=== PATIENT | male | born 1960 | race Caucasian/White ===

== ENCOUNTER → 2023-11-05 06:54 | Outpatient (REF) | payer OTHER, SELFPAY | LOC: HWRAD 06:54 | PROVIDERS: ATTENDING PHYSICIAN Physical Medicine & Rehabilitation; FAMILY PHYSICIAN Nurse Practitioner Family | DX: S82.142A Displaced bicondylar fracture of left tibia, initial encounter for closed fracture (principal) | CPT/HCPCS: 73700 ==

== ENCOUNTER → 2024-02-05 13:18 | Outpatient (REF) | payer OTHER, SELFPAY | LOC: MRI 13:18 | PROVIDERS: ATTENDING PHYSICIAN Orthopaedic Surgery | DX: M25.562 Pain in left knee (principal); Z95.810 Presence of automatic (implantable) cardiac defibrillator | CPT/HCPCS: 71046; 73721 ==

== ENCOUNTER → 2024-03-10 10:02 | Outpatient (REF) | payer OTHER, SELFPAY | LOC: HWRCS 10:02 | PROVIDERS: ATTENDING PHYSICIAN Internal Medicine Interventional Cardiology; FAMILY PHYSICIAN Nurse Practitioner Family | DX: I25.5 Ischemic cardiomyopathy (principal) | CPT/HCPCS: 93306 ==

== ENCOUNTER 2024-05-02 07:40 | Inpatient (IN) | payer OTHER, SELFPAY ==
--- NOTE | 2024-03-26 11:37 | CM ---
Patient is scheduled for an elective L TKR on 05/02/24. Spoke with patient prior to surgery via telephone. Introduced role of Orthopedic Navigator. Patient reports that he lives with his in a two story home. There are two steps to enter and a
flight of steps to the second floor. There is a powder room on the entry table operator. He currently functions independently. He has a cane, rolling walker, commode and shower seat. He has never had VN services. PCP is Duncan Golden.
Discussed orthopedic program and post surgical plans. Reviewed anticipated length of stay and that goal is for him to return home at discharge. Also reviewed outpatient PT. Patient is in agreement with tentative plan and will go directly to
outpatient PT at [facility]. He will have support from his when he goes home.
Patient will complete online education.
Plan: Orthopedic Navigator will remain available to assist with the care of patient and will reassess discharge needs after surgery.
[2024-04-07 09:10] VITALS: BMI 34.9
[2024-04-07 10:10] LABS: Hematocrit 46.3 % (39.0-52.0); Hemoglobin 16.1 g/dL (13.0-18.0); Mean Corp Hgb Conc. 34.8 g/dL (33.0-37.0); Mean Corpuscular Hgb 33.4 pg (27.0-31.0); Mean Corpuscular Volume 96.1 fL (80.0-94.0); Mean Platelet Volume 8.7 fL (7.4-10.4); Platelet Count 158 10^3/uL (130-400); Red Blood Cell Count 4.82 10^6/uL (4.70-6.10); Red Cell Dist. Width 12.9 % (11.5-14.5); White Blood Cell Count 7.6 10^3/uL (4.8-10.8)
[2024-04-07 10:37] LABS: ALT (SGPT) 42 U/L (0-50); AST (SGOT) 44 U/L (17-59); Albumin 4.3 g/dl (3.5-5.0); Alkaline Phosphatase 107 U/L (38-126); Blood Urea Nitrogen 16 mg/dl (9-20); Calcium 9.4 mg/dl (8.4-10.2); Carbon Dioxide 23 mmol/L (22-30); Chloride 107 mmol/L (98-107); Estimated Creatinine Clearance > 125 ml/min; Glucose 54 mg/dl (70-99); Potassium 4.5 mmol/L (3.5-5.1); Sodium 138 mmol/L (135-145); Total Bilirubin 0.3 mg/dl (0.2-1.3); Total Protein 6.8 g/dl (6.3-8.2); eGFR > 60.00
[2024-04-07 10:49] LABS: Glycohemoglobin (HgbA1c) 7.6 % (4.0-5.6)
[2024-04-29 11:03] VITALS: BMI 34.9
[2024-05-02] VITALS (15 sets, daily range): BP systolic 85–125; BP diastolic 53–73; BMI 36.1
--- NOTE | 2024-05-02 08:01 | W.DS.TRANS ---
DC Summary - Steward/Stewardess Third
-
Discharge Instructions:
Discharge Diagnosis/Procedures L TKA Dr. Franklin 05/02/24
Diet Diabetic, Carb Controlled
Activity With Walker
Driving Restrictions No driving
Bathing Restrictions OK to Shower
Blood Work INR Sunday and -results to Dr Castillo
[facility]
Other Services PT
Instructions:
Stand-Alone Forms: Total Hip/Knee Replacement D/C
Changes to Home Medications: Yes
Discharge Medications:
DC Medications w/original date entered in [employer]
cetirizine 10 mg tablet 10 mg PO PRN PRN allergies 03/03/15
spironolactone 25 mg tablet (Aldactone) 25 mg PO DAILY 03/03/15
ascorbic acid (vitamin C) 250 mg tablet 500 mg PO DAILY 06/18/15
aspirin 81 mg tablet,delayed release 81 mg PO DAILY 06/18/15
cholecalciferol (vitamin D3) 25 mcg (1,000 unit) tablet 1,000 units PO DAILY 06/18/15
desvenlafaxine succinate 100 mg tablet,extended release 24 hr (Pristiq) 100 mg PO DAILY 03/17/20
insulin glargine 100 unit/mL subcutaneous solution (Lantus U-100 Insulin) 50 unit SQ HS 03/17/20
insulin lispro 100 unit/mL subcutaneous solution (Humalog U-100 Insulin) 0 unit SC AC 03/17/20
mesalamine 1.2 gram tablet,delayed release (Lialda) 1.2 g PO DAILY 03/17/20
modafinil 200 mg tablet 400 mg PO DAILY 03/17/20
empagliflozin 10 mg tablet (Jardiance) 10 mg PO DAILY 04/25/24
ezetimibe 10 mg tablet (Zetia) 10 mg PO DAILY 04/25/24
isosorbide mononitrate 30 mg tablet,extended release 24 hr 30 mg PO DAILY 04/25/24
metoprolol succinate 50 mg tablet,extended release 24 hr (Toprol XL) 50 mg PO DAILY 04/25/24
mupirocin 2 % topical ointment 1 applic topical BID 04/25/24
rosuvastatin 20 mg tablet 20 mg PO DAILY 04/25/24
sacubitril 97 mg-valsartan 103 mg tablet (Entresto) 1 tab PO BID 04/25/24
tirzepatide 10 mg/0.5 mL subcutaneous pen injector (Mounjaro) 10 mg SC SA 04/25/24
warfarin 4 mg tablet 6.5 mg PO QPM 04/25/24
acetaminophen 650 mg tablet,extended release 1,300 mg (2 x 650 mg) PO TID #0 tabs 05/02/24
docusate sodium 100 mg capsule (Colace) 100 mg PO BID stool softner #1 cap 05/02/24
magnesium hydroxide 400 mg/5 mL oral suspension (Milk of Magnesia) 30 ml PO HS PRN Constipation #1 mL 05/02/24
ondansetron 4 mg disintegrating tablet 4 mg PO Q6H PRN n/v #20 tabs 05/02/24
oxycodone 5 mg tablet 5 mg PO Q6H PRN 1 tab moderate pain, 2 tabs severe pain #30 tabs 05/02/24
Home Medication Changes
ondansetron 4 mg disintegrating tablet 4 mg PO Q6H PRN n/v #20 tabs 05/02/24
oxycodone 5 mg tablet 5 mg PO Q6H PRN 1 tab moderate pain, 2 tabs severe pain #30 tabs 05/02/24
Pending Results: No
[2024-05-02 08:16] LABS: Glucose - Point of Care 155 mg/dl (70-99)
[2024-05-02] MEDS: TYLENOL 650 MG PO ×3 (08:19→20:52)
[2024-05-02] MEDS: NORMOSOL-R 1000 IV ×2 (08:20→12:44)
[2024-05-02] MEDS: CELEBREX 200 MG PO (08:20)
[2024-05-02 11:33] LABS: Glucose - Point of Care 83 mg/dl (70-99)
[2024-05-02] MEDS: ROXICODONE 5 MG PO (13:51)
[2024-05-02 14:06] LABS: Glucose - Point of Care 126 mg/dl (70-99)
--- NOTE | 2024-05-02 15:29 | W.PN.UPDATE ---
Update Note
Progress Note Update
Patient doing well postop. VSS. Pulm: nonlabored. CV: regular. LLE: NVI distally. Calf soft. Able to fully extend. Dressing CDI. Post op xray as expected. Plan for discharge home tomorrow with outpatient PT on Sunday. Coumadin for DVT
prophylaxis.
[2024-05-02 15:39] LABS: INR 1.13; PT 14.3 Sec (11.4-14.6)
--- NOTE | 2024-05-02 16:00 | PTCARENOTE ---
1450: pt arrived to floor from PACU AOx3, carrying food tray. LFA 20g 75ml Norm R. bed low call mcarthur in reach Pt/OT walked pt
[2024-05-02 16:49] LABS: Glucose - Point of Care 288 mg/dl (70-99)
[2024-05-02] MEDS: JARDIANCE PO (16:59)
[2024-05-02] MEDS: PRISTIQ PO (16:59)
[2024-05-02] MEDS: ANCEF 5 IV (17:01)
[2024-05-02] MEDS: TYLENOL PO ×2 (17:03)
[2024-05-02] MEDS: DILAUDID 0.5 MG IV (17:04)
[2024-05-02] MEDS: ZETIA PO (17:09)
[2024-05-02] MEDS: NOVOLOG FLEXPEN-MODERATE RESISTANCE SC (17:09)
[2024-05-02] MEDS: CRESTOR PO (17:41)
[2024-05-02] MEDS: ENTRESTO 97 MG/103 MG PO (17:41)
[2024-05-02] MEDS: COUMADIN 5 MG PO (17:59)
[2024-05-02] MEDS: NOVOLOG FLEXPEN-MODERATE RESISTANCE 5 UNITS SC (17:59)
[2024-05-02] MEDS: BACTROBAN 2% OINTMENT 1 APPLIC NASAL (20:52)
[2024-05-02] MEDS: COLACE 100 MG PO (20:53)
[2024-05-02] MEDS: PROTONIX 40 MG PO (22:06)
[2024-05-02] MEDS: NEURONTIN 300 MG PO (22:06)
[2024-05-02] MEDS: ENTRESTO 97 MG/103 MG 1 TAB PO (22:06)
[2024-05-02] MEDS: SENOKOT 8.6 MG PO (22:06)
[2024-05-02] MEDS: LANTUS 0.56 UNITS SC (22:07)
[2024-05-02 22:12] LABS: Glucose - Point of Care 263 mg/dl (70-99)
[2024-05-03] MEDS: ANCEF 5 IV (00:29)
[2024-05-03] MEDS: TYLENOL 650 MG PO ×3 (00:29→08:30)
[2024-05-03] MEDS: ROXICODONE 5 MG PO ×3 (00:36→10:03)
[2024-05-03 03:24] VITALS: BP 125/68
[2024-05-03 06:00] VITALS: BMI 35.9
[2024-05-03 07:02] LABS: Glucose - Point of Care 185 mg/dl (70-99)
[2024-05-03 07:05] VITALS: BP 110/61
[2024-05-03 07:34] LABS: INR 2.13; PT 23.7 Sec (11.4-14.6)
--- NOTE | 2024-05-03 07:52 | W.PN.ORTHO ---
Today's Communication / Plan
-
Plan for discharge home today with outpatient PT on Sunday. Coumadin for DVT prophylaxis. Follow up in the office in 2 weeks.
Assessment
.
Distal Motor Intact: Yes
Dressing:
Clean, dry and intact.
Assessment:
Doing well s/p L TKR
Plan
.
Surgery / Date: 05/02/2024 L TKR
DVT Prophylaxis: Coumadin
Activity:
Out of bed.
PT/OT
Discharge Plan: Home w/ Outpatient PT
Subjective
.
.:
Patient resting comfortably. OOB and in the ervin yesterday. Feeling stiff today.
Vital Signs and Labs
.
Vital Signs and Labs:
Lab Results
04/07/24 09:07
04/07/24 09:07
Temp Pulse Resp BP Pulse Ox
97.2 F 64 16 110/61 96
05/03/24 07:05 05/03/24 07:05 05/03/24 07:05 05/03/24 07:05 05/03/24 07:05
PT 14.3 Sec (11.4-14.6) 05/02/24 15:05
INR 1.13 05/02/24 15:05
Non-invasive Hgb result: 15
Physical Exam
-
Pulm: nonlabored
CV: regular
Abd: benign
Ext: LLE: NVI distally. Calf soft. Dressing CDI. Able to fully extend and flexes to 90 degrees
[2024-05-03] MEDS: NOVOLOG FLEXPEN-MODERATE RESISTANCE 1 UNITS SC (08:25)
[2024-05-03] MEDS: ZETIA 10 MG PO (08:28)
[2024-05-03] MEDS: COLACE 100 MG PO (08:28)
[2024-05-03] MEDS: ENTRESTO 97 MG/103 MG 1 TAB PO (08:29)
[2024-05-03] MEDS: PRISTIQ 100 MG PO (08:30)
[2024-05-03] MEDS: TOPROL XL 25 MG PO (08:31)
[2024-05-03] MEDS: CRESTOR 20 MG PO (08:31)
[2024-05-03] MEDS: ALDACTONE 12.5 MG PO (08:32)
[2024-05-03] MEDS: JARDIANCE 10 MG PO (08:33)
[2024-05-03] MEDS: BACTROBAN 2% OINTMENT 1 APPLIC NASAL (08:33)
[2024-05-03 09:29] VITALS: BP 137/72
[2024-05-03 10:00] VITALS: BP 131/70; PULSE 61
--- NOTE | 2024-05-03 10:28 | CM ---
Reviewed the chart and spoke with the patient at the bedside. Reviewed CM consult for VN/homecare. Patient will be going to outpatient rehab. Declined VN. CM continues to be available to patient/family and is monitoring medical plan for needs at
discharge.
Plan: Discharge to home today with out patient therapy with [facility]. Patient's spouse to provide transportation.
[2024-05-03 11:17] VITALS: BP 130/72
== END 2024-05-03 11:51 | disposition home or self-care (01) | DRG 470 ==
LOC: 2 SOUTH 07:40
PROVIDERS: Physician Assistant Medical; ADMITTING PHYSICIAN Orthopaedic Surgery; FAMILY PHYSICIAN Nurse Practitioner Family
PROC: 0SRD0J9 Replacement of Left Knee Joint with Synthetic Substitute, Cemented, Open Approach (ICD-10-PCS; 2024-05-02)
DX: M17.12 Unilateral primary osteoarthritis, left knee (principal); K51.90 Ulcerative colitis, unspecified, without complications; I50.20 Unspecified systolic (congestive) heart failure; I48.91 Unspecified atrial fibrillation; E11.9 Type 2 diabetes mellitus without complications; E04.2 Nontoxic multinodular goiter; K21.9 Gastro-esophageal reflux disease without esophagitis; I11.0 Hypertensive heart disease with heart failure; I25.5 Ischemic cardiomyopathy; I25.10 Atherosclerotic heart disease of native coronary artery without angina pectoris; E78.2 Mixed hyperlipidemia; G47.33 Obstructive sleep apnea (adult) (pediatric); F32.9 Major depressive disorder, single episode, unspecified; E66.9 Obesity, unspecified; R26.2 Difficulty in walking, not elsewhere classified; I25.2 Old myocardial infarction; Z79.01 Long term (current) use of anticoagulants; Z79.4 Long term (current) use of insulin; Z79.82 Long term (current) use of aspirin; Z79.85 Long-term (current) use of injectable non-insulin antidiabetic drugs; Z95.5 Presence of coronary angioplasty implant and graft; Z95.810 Presence of automatic (implantable) cardiac defibrillator; Z79.899 Other long term (current) drug therapy; Z68.35 Body mass index [BMI] 35.0-35.9, adult
CPT/HCPCS: 36415; 73560; 80053; 82962; 83036; 85027; 85610; 87070; 97110; 97116; 97162; 97166; 97535; C1713; C1776

== ENCOUNTER 2024-10-20 06:15 | Day surgery (SDC) | payer OTHER, SELFPAY ==
[2024-10-20 08:28] LABS: Glucose - Point of Care 145 mg/dl (70-99)
[2024-10-20 08:30] VITALS: BP 114/71
[2024-10-20 08:35] VITALS: BMI 19.4
[2024-10-20 08:36] VITALS: BMI 19.4
[2024-10-20 10:34] VITALS: BP 115/65
[2024-10-20 10:40] LABS: Glucose - Point of Care 118 mg/dl (70-99)
[2024-10-20 10:45] VITALS: BP 103/66
[2024-10-20 10:57] VITALS: BP 110/63
== END 2024-10-20 11:15 | disposition home or self-care (01) ==
LOC: SDS 06:15
PROVIDERS: ATTENDING PHYSICIAN Specialist
DX: K51.90 Ulcerative colitis, unspecified, without complications (principal); K63.5 Polyp of colon; K57.30 Diverticulosis of large intestine without perforation or abscess without bleeding
CPT/HCPCS: 45385; 45380; 88305; 82962

== ENCOUNTER 2025-02-23 11:57 | Emergency (ER) | payer OTHER, SELFPAY ==
[2025-02-23 12:01] VITALS: BP 113/63
[2025-02-23 12:22] VITALS: BMI 33.9
--- NOTE | 2025-02-23 12:46 | ED.GENMED ---
History of Present Illness
<aMrlon Bruno DO - Last Filed: 02/23/25 12:48>
General
Chief Complaint: Eye Problems
Time Seen by Provider: 02/23/25 12:15
<German Solorzano Jr., PA-C - Last Filed: 02/23/25 13:40>
General
Source: patient
Exam Limitations: none
Nursing documentation reviewed up to this point in time: agreed with
History of Present Illness
History of Present Illness:
64-year-old male past medical history of heart disease ulcerative colitis presenting to the emergency department today with concerns of vision change which initially was consistent with a floater earlier today to the right eye at now its described
as a veil over his vision that seems to be moving to some slightly improving over the past few hours. Occasional flashes. Was otherwise asymptomatic last night normally has good vision.
Past History
<Marlon Bruno DO - Last Filed: 02/23/25 12:48>
Past History
ED Past Medical History: CAD, HTN (are), Hypercholesterolemia, IDDM, Psychiatric and Other (Cardiomyopath sleep apnea, colitis, kidney stones, arthritis, impaired vision, ADHD, depression y,)
ED Past Surgical History: Appendectomy and Cardiac (Cardiac stent x3 in 2012,ICD placement)
Social History
Tobacco: Non-smoker
Alcohol: None
Drug: None
Personal:
Living: with family
Employment: Employed
Review of Systems
<German Solorzano Jr., PA-C - Last Filed: 02/23/25 13:40>
Review of Systems
Allergies reviewed?: Yes
All Other Systems: ROS reviewed and negative except as documented in HPI and ROS
Phy Exam
<German Solorzano Jr., PA-C - Last Filed: 02/23/25 13:40>
Physical Exam
Physical Exam:
GENERAL: Alert , in no apparent distress
EYE:20/50 vision to the right eye 20/20 vision to the left eye, normal external eye on examination, technically difficult funduscopic examination unable to visualize the retina well with direct visualization.pupils equal and reactive
NECK: Supple, no significant adenopathy.
ENT: o/p clr, mmm.
CARDIAC: Regular rate and rhythm .
LUNGS: Clear breath sounds bilaterally, no acute respiratory distress, no wheezes/rales/rhonchi
ABDOMEN: Soft, without focal tenderness, no r/g, no cvat
NEUROLOGICAL: Alert and oriented, no focal neuro deficits
SKIN: Warm and dry, skin intact.
MUSCULOSKELETAL: No edema, well perfused.
PSYCH: Normal and appropriate interaction.
Course
<Marlon Bruno DO - Last Filed: 02/23/25 12:48>
Orders/Labs/Results
Orders:
Orders
02/23/25 12:36
Visual Acuity- Treatment ONCE
Vital Signs
Initial and Last Documented VS:
Initial Vital Signs
Temp Pulse Resp BP Pulse Ox
97.3 F 80 16 113/63 97
02/23/25 12:01 02/23/25 12:01 02/23/25 12:01 02/23/25 12:01 02/23/25 12:01
Last Documented Vital Signs
Temp Pulse Resp BP Pulse Ox
97.3 F 80 16 113/63 97
02/23/25 12:01 02/23/25 12:01 02/23/25 12:01 02/23/25 12:01 02/23/25 12:01
<German Solorzano Jr., PA-C - Last Filed: 02/23/25 13:40>
Orders/Labs/Results
Orders:
Orders
02/23/25 12:36
Visual Acuity- Treatment ONCE
Vital Signs
Initial and Last Documented VS:
Initial Vital Signs
Temp Pulse Resp BP Pulse Ox
97.3 F 80 16 113/63 97
02/23/25 12:01 02/23/25 12:01 02/23/25 12:01 02/23/25 12:01 02/23/25 12:01
Last Documented Vital Signs
Temp Pulse Resp BP Pulse Ox
97.3 F 80 16 113/63 97
02/23/25 12:01 02/23/25 12:01 02/23/25 12:01 02/23/25 12:01 02/23/25 12:01
<German Solorzano Jr., PA-C - Last Filed: 02/23/25 13:40>
MDM/Problems Addressed
MDM/Problems Addressed:
64-year-old male presenting to the emergency department today with concerns of vision changes to the right eye starting this morning upon awakening. No pain. Initially described as a floater now a veil. When he 50 vision to the right 20 the left.
Case discussed with ophthalmology that recommended immediate and emergent examination by ophthalmology at [facility]. This was recommended to the patient who claims that they would go directly there. Return precautions given otherwise.
<German Solorzano Jr., PA-C - Last Filed: 02/23/25 13:40>
*Critical Care Note
Total Time (30-74mins, 75-104mins- exclusive of procedures): Not Applicable
ED Attending Note
<Marlon Bruno DO - Last Filed: 02/23/25 12:48>
ED Attending Note
Patient seen and examined by attending physician: Yes
I performed the substantive portion of visit, reviewed & personally made and approve the management plan that is documented in note by myself or CHANDNI.: Yes
ED Attending Note:
I have seen and evaluated the patient with a [id number] encounter. I have spoken to the advance practicer provider and involved in the medical history, the physical exam, medical decision making.
Evaluation and management service: agree unless noted differently below.
Results interpretation: agree unless noted differently below.
Focused HPI: 64-year-old male presenting for evaluation of blurry vision in his right eye. He states it feels like there is a veil over his eye. He denies trauma
Physical exam: Sitting in bed comfortably. Pupils equal reactive. Very limited direct funduscopy showing mostly a hazy red appearance in the back of his eye.
Medical Decision Making: indicates that he has had vitreous hemorrhages in the past. The PA will discuss the case with ophthalmology
-
Portions of this chart may have been created with voice recognition software.� Occasional wrong word or��sound alike� substitutions may have occurred due to the inherent limitations of voice recognition software.
Discharge Plan
Departure
Patient Disposition: Home (Routine Discharge)
Date of Disposition: 02/23/25
Time of Disposition: 13:35
Patient with high blood pressure during this ER visit?: No
Condition: Good
Covid-19: Not Applicable
Discharge Problem:
Changes in vision
Prescriptions:
No Action
cetirizine 10 MG tablet
10 mg PO PRN PRN (Reason: allergies)
spironolactone [Aldactone] 25 MG tablet
25 mg PO DAILY
ascorbic acid (vitamin C) 250 MG tablet
500 mg PO DAILY
cholecalciferol (vitamin D3) 1,000 UNITS tablet
1,000 units PO DAILY
aspirin 81 MG tablet,delayed release (DR/EC)
81 mg PO DAILY
insulin glargine [Lantus U-100 Insulin] 100 UNIT/ML solution
50 unit SQ HS
Patient Comments:
pt took 30 Units SQ
modafinil 200 MG tablet
400 mg PO DAILY
insulin lispro [Humalog U-100 Insulin] 100 UNIT/ML solution
0 unit SC AC
Rx Instructions:
SLIDING SCALE WITH MEALS
mesalamine [Lialda] 1.2 GM tablet,delayed release (DR/EC)
1.2 g PO DAILY
desvenlafaxine succinate [Pristiq] 100 MG tablet extended release 24 hr
100 mg PO DAILY
metoprolol succinate [Toprol XL] 50 mg Tablet Extended Release 24 Hr
50 mg PO DAILY
isosorbide mononitrate 30 mg Tablet Extended Release 24 Hr
30 mg PO DAILY
warfarin 4 mg Tablet
6.5 mg PO QPM
ezetimibe [Zetia] 10 mg Tablet
10 mg PO DAILY
rosuvastatin 20 mg Tablet
20 mg PO DAILY
Jardiance 10 mg Tablet
10 mg PO DAILY
sacubitril-valsartan [Entresto] 97-103 mg Tablet
1 tab PO BID
Mounjaro 10 mg/0.5 mL Pen Injector
10 mg SC SA
acetaminophen 650 mg Tablet Extended Release
1,300 mg PO TID Qty: 0 0RF
Referrals:
Jay Jay Ott CRNP [Family Provider] -
Activity Restrictions/Additional Instructions:
You came to the emergency department today with concerns of visual changes to the right eye. We have concerned that this could possibly be an early retinal detachment. This also could be a vitreous change. You will need a proper examination by an
eye doctor. It is recommended that you immediately go to [facility] for further assessment of this us return to the ER for any worsening or progressive symptoms.
Interventions
Interventions:
*Risk Screen - Suicide Last Done: 02/23/25 12:22
*General Assessment Last Done: 02/23/25 12:22
*Neglect/Abuse Screening Last Done: 02/23/25 12:22
*ED- Fall Risk Assessment Last Done: 02/23/25 12:22
*ED COVID-19 Vaccine History Last Done: 02/23/25 12:22
Discharge Date and Time
Print Language: JAPANESE
== END 2025-02-23 13:40 | disposition home or self-care (01) ==
LOC: EMR 11:57
PROVIDERS: EMERGENCY PHYSICIAN Student in an Organized Health Care Education/Training Program; FAMILY PHYSICIAN Nurse Practitioner Family; OTHER PHYSICIAN Ophthalmology
DX: H53.8 Other visual disturbances (principal); I25.10 Atherosclerotic heart disease of native coronary artery without angina pectoris; I10 Essential (primary) hypertension; E11.319 Type 2 diabetes mellitus with unspecified diabetic retinopathy without macular edema; E78.00 Pure hypercholesterolemia, unspecified; I42.9 Cardiomyopathy, unspecified; F90.9 Attention-deficit hyperactivity disorder, unspecified type; M19.90 Unspecified osteoarthritis, unspecified site; F32.A Depression, unspecified; F41.9 Anxiety disorder, unspecified; G47.30 Sleep apnea, unspecified; K51.90 Ulcerative colitis, unspecified, without complications; I25.2 Old myocardial infarction; Z95.5 Presence of coronary angioplasty implant and graft; Z95.810 Presence of automatic (implantable) cardiac defibrillator; Z79.82 Long term (current) use of aspirin; Z79.01 Long term (current) use of anticoagulants
CPT/HCPCS: 99282